=== PATIENT | female | born 1940 | race African-American/Black ===

== ENCOUNTER 2021-11-18 06:28 | Day surgery (SDC) | payer OTHER ==
[2021-11-12 15:57] VITALS: BMI 25.7
[2021-11-18] MEDS ORDERED: TROPICAMIDE 1% OPHTH SOLN 15 ML BOTTLE ONE (06:45)
[2021-11-18] MEDS ORDERED: CYCLOPENTOLATE HCL 1% OPHTH SOLN 2 ML BOTTLE OS SCH (07:00)
[2021-11-18] MEDS ORDERED: OFLOXACIN 0.3% OPHTHALMIC SOLUTION 5 ML BOTTLE OS SCH (07:00)
[2021-11-18] MEDS ORDERED: PHENYLEPHRINE 2.5% OPHTH SOLN 15 ML BOTTLE OS SCH (07:00)
[2021-11-18] MEDS ORDERED: TROPICAMIDE 1% OPHTH SOLN 15 ML BOTTLE OS SCH (07:00)
[2021-11-18] MEDS ORDERED: KETOROLAC TROMETHAMINE 0.5% EYE DROP 1 DROP DROPS OS SCH (07:00)
[2021-11-18] MEDS ORDERED: BETAXOLOL HCL 0.25% OPHTHALMIC 10 ML DROPSBTL ONE (07:12)
[2021-11-18] MEDS ORDERED: EPINEPHrine/PF 1 MG/1 ML (1:1,000) AMPULE ONE (07:12)
[2021-11-18] MEDS ORDERED: BACITRACIN/POLYMYXIN OPH OINT 3.5 GM TUBE ONE (07:12)
[2021-11-18] MEDS ORDERED: PHENYLEPHRINE/KETOROLAC 4 ML VIAL IO ONE (07:12)
[2021-11-18] MEDS ORDERED: EPI-SHUGARCAINE (EPINEPHRINE 0.025% & LIDOCAINE-PF 0.75%) 4ML ONE (07:12)
[2021-11-18] MEDS ORDERED: TETRACAINE 0.5% OPHTH SOLN 2 ML BOTTLE ONE (07:13)
[2021-11-18] MEDS ORDERED: POVIDONE-IODINE 5% OPHTHALMIC PREP 30 ML SOLUTION ONE (07:13)
[2021-11-18] MEDS ORDERED: ACETYLCHOLINE 1:100 INTRA-OCUL 20 MG/2 ML KIT ONE (07:13)
[2021-11-18] MEDS ORDERED: NEO/POLYMYX B SULF/DEXAMETH OPHTHALMIC 5ML BOTTLE ONE (07:13)
[2021-11-18] MEDS ORDERED: SUCCINYLCHOLINE CHLORIDE 200 MG/10 ML SYRINGE ONE (08:02)
[2021-11-18] MEDS ORDERED: MIDAZOLAM HCL 2 MG/2 ML SINGLE DOSE VIAL ONE ×2 (08:02→08:26)
[2021-11-18] MEDS ORDERED: PROPOFOL 20 ML ONE (08:02)
[2021-11-18] MEDS ORDERED: ACETAMINOPHEN 325 MG TABLET (FP) PO PRN (09:03)
[2021-11-18 09:11] VITALS: TEMP 97.8
[2021-11-18 09:38] VITALS: BP 124/67; PULSE 64
== END 2021-11-18 09:47 | disposition home or self-care (01) ==
LOC: FASU 06:28
PROVIDERS: ATTEND Ophthalmology
PROC: 08RK3JZ Replacement of Left Lens with Synthetic Substitute, Percutaneous Approach (ICD-10-PCS; principal; 2021-11-18 08:25)
DX: H26.9 Unspecified cataract (principal)
CPT/HCPCS: 66984; V2632; J1097

== ENCOUNTER 2021-12-02 05:51 | Day surgery (SDC) | payer OTHER, BC ==
[2021-11-18 07:35] VITALS: BMI 25.7
[2021-12-02] MEDS ORDERED: EPINEPHrine/PF 1 MG/1 ML (1:1,000) AMPULE ONE (07:20)
[2021-12-02] MEDS ORDERED: BACITRACIN/POLYMYXIN OPH OINT 3.5 GM TUBE ONE (07:20)
[2021-12-02] MEDS ORDERED: PHENYLEPHRINE/KETOROLAC 4 ML VIAL IO ONE (07:20)
[2021-12-02] MEDS ORDERED: EPI-SHUGARCAINE (EPINEPHRINE 0.025% & LIDOCAINE-PF 0.75%) 4ML ONE (07:21)
[2021-12-02] MEDS ORDERED: NEO/POLYMYX B SULF/DEXAMETH OPHTHALMIC 5ML BOTTLE ONE (07:21)
[2021-12-02] MEDS ORDERED: TETRACAINE 0.5% OPHTH SOLN 2 ML BOTTLE ONE (07:21)
[2021-12-02] MEDS ORDERED: BETAXOLOL HCL 0.25% OPHTHALMIC 10 ML DROPSBTL ONE (07:21)
[2021-12-02] MEDS ORDERED: POVIDONE-IODINE 5% OPHTHALMIC PREP 30 ML SOLUTION ONE (07:21)
[2021-12-02] MEDS ORDERED: ACETYLCHOLINE 1:100 INTRA-OCUL 20 MG/2 ML KIT ONE (07:21)
[2021-12-02] MEDS ORDERED: BSS (NA/CA/MG/K) BALANCED SALT SOLUTION OPHTH SOLN 15 ML BOTTLE ONE (07:21)
[2021-12-02] MEDS ORDERED: KETOROLAC TROMETHAMINE 0.5% EYE DROP 1 DROP DROPS ONE (09:07)
[2021-12-02] MEDS ORDERED: OFLOXACIN 0.3% OPHTHALMIC SOLUTION 5 ML BOTTLE ONE (09:07)
[2021-12-02] MEDS ORDERED: CYCLOPENTOLATE HCL 1% OPHTH SOLN 2 ML BOTTLE ONE (09:07)
[2021-12-02] MEDS ORDERED: PHENYLEPHRINE 2.5% OPHTH SOLN 15 ML BOTTLE ONE (09:07)
[2021-12-02] MEDS ORDERED: TROPICAMIDE 1% OPHTH SOLN 15 ML BOTTLE ONE (09:07)
[2021-12-02] MEDS: PHENYLEPHRINE 2.5% OPHTH SOLN 15 ML BOTTLE OD SCH ×3 (09:25→09:35)
[2021-12-02] MEDS: TROPICAMIDE 1% OPHTH SOLN 15 ML BOTTLE OD SCH ×3 (09:25→09:35)
[2021-12-02] MEDS: KETOROLAC TROMETHAMINE 0.5% EYE DROP 1 DROP DROPS OD SCH ×3 (09:25→09:35)
[2021-12-02] MEDS: CYCLOPENTOLATE HCL 1% OPHTH SOLN 2 ML BOTTLE OD SCH ×3 (09:25→09:35)
[2021-12-02] MEDS: OFLOXACIN 0.3% OPHTHALMIC SOLUTION 5 ML BOTTLE OD SCH ×3 (09:25→09:35)
[2021-12-02] MEDS ORDERED: MIDAZOLAM HCL 2 MG/2 ML SINGLE DOSE VIAL ONE (11:00)
[2021-12-02] MEDS ORDERED: ACETAMINOPHEN 325 MG TABLET (FP) PO PRN (11:40)
[2021-12-02 11:50] VITALS: BP 105/64; PULSE 70; TEMP 97.8
== END 2021-12-02 12:10 | disposition home or self-care (01) ==
LOC: FASU 05:51
PROVIDERS: ATTEND Ophthalmology
PROC: 08RJ3JZ Replacement of Right Lens with Synthetic Substitute, Percutaneous Approach (ICD-10-PCS; principal; 2021-12-02 11:11)
DX: H25.9 Unspecified age-related cataract (principal)
CPT/HCPCS: 66984; V2632; C9803-CS; J1097; U0003; U0005